=== PATIENT | male | born 1975 | race Asian ===

== ENCOUNTER 2019-08-07 19:18 | Emergency (ER) | payer SELFPAY ==
--- NOTE | 2019-08-07 19:52 | EDM.PDOC ---
ED HPI GENERAL MEDICAL PROBLEM - General Chief Complaint: General Stated Complaint: "Sliver in my thumb" Time Seen by Provider: 08/07/19 19:48 Source of Information: Reports: Patient History Limitations: Reports: No Limitations - History of Present Illness INITIAL COMMENTS - FREE TEXT/NARRATIVE: Kt is a 44 year old male who presents to the ED with concerns of metal fragments in his right thumb. 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 Reports it is painful. No redness or drainage. Does report the other night he was trying to "dig around" and see if there was anything and it was too painful to do. Reports this has been ongoing x 1 week. Has small abrasions to distal aspect of right thumb. No other complaints. Onset Date: 08/01/19 Location: Reports: Upper Extremity, Right (thumb) Quality: Reports: Ache Severity: Mild Improves with: Reports: None Worsens with: Reports: None Associated Symptoms: Reports: No Other Symptoms Right Hand Pain Score (Numeric/FACES): 2 - Related Data Allergies Allergy/AdvReac Type Severity Reaction Status Date / Time No Known Allergies Allergy Verified 08/07/19 19:33 Home Meds: Home Meds . [No Known Home Meds] 08/07/19 [History] ED ROS GENERAL - Review of Systems Review Of Systems: ROS reveals no pertinent complaints other than HPI. ED EXAM, GENERAL - Physical Exam Exam: See Below Exam Limited By: No Limitations General Appearance: Alert, WD/WN, No Apparent Distress Peripheral Pulses: 2+: Radial (R) Extremities: Normal Range of Motion, Normal Capillary Refill Skin Exam: Other (pinpoint abrasions scattered to distal aspect of right thumb, no obvious metal fragments) Course - Vital Signs Last Recorded V/S: Last Vital Signs Temp 96.6 F 08/07/19 19:30 Pulse 85 08/07/19 19:30 Resp 20 08/07/19 19:30 BP 138/84 08/07/19 19:30 Pulse Ox 99 08/07/19 19:30 - Orders/Labs/Meds Orders: Active Orders 24 hr Category Date Time Status Fingers Thumb Rt F5 [CR] Stat Exams 08/07/19 19:43 Taken - Re-Assessments/Exams Free Text/Narrative Re-Assessment/Exam: Xray does not reveal and metal fragments. Discussed with patient that abrasions will heal with time and if there are tiny fragments, they should gradually come out. No concerning findings on exam. Departure - Departure Time of Disposition: 20:13 Disposition: Home, Self-Care 01 Condition: Good Clinical Impression: Finger abrasion, non-infected - Discharge Information *PRESCRIPTION DRUG MONITORING PROGRAM REVIEWED*: Not Applicable *COPY OF PRESCRIPTION DRUG MONITORING REPORT IN PATIENT ISAIAS: Not Applicable Instructions: Abrasion, [id number] Referrals: PCP,None [Primary Care Provider] - Forms: ED Department Discharge Additional Instructions: - Soak finger in warm epsom salt & water 3x/day - Tylenol or ibuprofen as needed for pain - Keep area clean and dry - Follow up in clinic for any s/s of infection (worsening redness, swelling, foul smelling drainage) - Return to ED for emergent needs - My Orders Last 24 Hours: My Active Orders 08/07/19 19:43 Fingers Thumb Rt F5 [CR] Stat - Assessment/Plan Last 24 Hours: My Active Orders 08/07/19 19:43 Fingers Thumb Rt F5 [CR] Stat Plan: PLEASE SEE NURSES NOTE FOR PMH, PSH, SH, & FH.
== END 2019-08-07 20:20 | disposition home or self-care (01) ==
LOC: CC.ED 19:18
DX: S60.311A Abrasion of right thumb, initial encounter (principal); X58.XXXA Exposure to other specified factors, initial encounter
CPT/HCPCS: 73140-F5; 99282-25